=== PATIENT | male | born 1980 | race Caucasian/White ===

== ENCOUNTER 2019-03-20 18:58 | Emergency (ER) | payer SELFPAY ==
[~2019-03-20] VITALS: Ht 180.3 cm; Wt 97.3 kg
[2019-03-20] MEDS ORDERED: FLUORESCEIN (FLUOR-I-STRIPS) 1 MG STRP ONE (19:10)
[2019-03-20] MEDS ORDERED: TETRACAINE 0.5% OPHTH SOLN 4 ML BTL (SINGLE DOSE ONLY) ONE (19:10)
[2019-03-20] MEDS ORDERED: TETRACAINE 0.5% OPHTH SOLN 4 ML BTL (SINGLE DOSE ONLY) OP ONE (19:15)
--- NOTE | 2019-03-20 19:24 | ED EENT ---
History of Present Illness General Chief Complaint: Eye Problems Stated Complaint: EYE INFLAMMATION Nursing Triage Note: Patient states that 4-5 days ago he was working on a car and something fell into his left eye. He said he flushed his eye to remove the object. It is unknown if it came out and he never saw what it was. He said that his eye had been blood shot since it happened. Today, he is unable to open his eye and his eye is excessively tearing. She describes a sharp pain at the bottom of his eyeball. History of Present Illness Date Seen by Provider: Mar 20, 2019 Time Seen by Provider: 19:00 Initial Comments Over the last 3-4 days has had increasing redness in the left eye evidently was working under his 's car and something fell in the eye and since that time has had more redness associated with it some purulent drainage from the eye with as well but now more pain than anything Timing/Duration: gradual Location: eye (L) Prearrival Treatment: no prearrival treatment Allergies and Home Medications Allergies Coded Allergies: No Known Drug Allergies (Unverified , 03/20/19) Patient Home Medication List Home Medication List Reviewed: Yes Review of Systems Review of Systems Constitutional: No chills, No fever Eyes: Blurred Vision, Decreased Acuity, Foreign Body Sensation, Inflammation, Pain, Photophobia Skin: no symptoms reported Neurological: No Symptoms Reported Past Pamzced-Bltwyn-Jixvrd Hx Past Med/Social Hx: Reviewed Nursing Past Med/Soc Hx Patient Social History Recent Foreign Travel: No Contact w/Someone Who Travel: No Recent Infectious Disease Expo: No Physical Abuse: No Sexual Abuse: No Mistreated: No Fear: No Physical Exam Vital Signs Vital Signs - First Documented 03/20/19 19:00 Temp 36.6 Pulse 88 Resp 16 B/P (MAP) 132/76 (94) Pulse Ox 98 O2 Delivery Room Air Height, Weight, BMI Height: '" Weight: lbs. oz. kg; 29.00 BMI Method: General Appearance: WD/WN, mild distress Eyes: left eye conjunctival inflammation, left eye corneal abrasion, left eye lid inflammation, left eye foreign body; bilateral eye PERRL, bilateral eye EOMI Neurologic/Psychiatric: alert, oriented x 3 Skin: normal color, warm/dry Procedures/Interventions Eye : Location: left eye Anesthesia (gtts): Tetracaine Progress/Procedure Conclusion Under tetracaine anesthesia general initially showed 2 punctate areas 1 on the sclera one on the cornea both at the 9:00 position of the left eye proximal E millimeter to a millimeter and a half in diameter foggy consistent with corneal staining secondary to a metallic type foreign body most of his pain is left lateral along the palpebral conjunctiva with no evidence of injury there although there is quite a bit of fluorescence along the sclera at the lateral edge of the eye no evidence of foreign body could be noted at that edge examination with the fluorescein failed to show anything beyond what she described third irrigation and instillation of erythromycin ointment Progress/Results/Core Measures Results/Orders My Orders Orders - SUSANA HI JR, MD Tetracaine 0.5% Ophth Jeannie Sdv (Tetracai (03/20/19 19:15) Tetracaine 0.5% Ophth Jeannie Sdv (Tetracai (03/20/19 19:10) Fluorescein Strips ([id number]) (03/20/19 19:10) Erythromycin Ophth Oint (Erythromycin Op (03/20/19 22:00) Rx-Hydrocodone/Apap 5-325 Mg (Rx-Vicodin (03/20/19 19:30) Medications Given in ED Current Medications Medications Dose Ordered Sig/Joaquim Route Start Time Stop Time Status Last Admin Dose Admin Fluorescein Sodium 1 mg STK-MED ONCE .ROUTE 03/20/19 19:10 03/20/19 19:15 DC 03/20/19 19:23 1 MG Tetracaine HCl 1 OR 2 DROPS INTO AFFEC... ONCE ONCE OP 03/20/19 19:15 03/20/19 19:16 DC 03/20/19 19:22 4 ML Vital Signs/I&O 03/20/19 19:00 Temp 36.6 Pulse 88 Resp 16 B/P (MAP) 132/76 (94) Pulse Ox 98 O2 Delivery Room Air Blood Pressure Mean: 94 Progress Progress Note : Time: 19:27 Progress Note At this time given erythromycin ointment some Benkelman's and will follow with the hearing screener for further evaluation Departure Impression Primary Impression: Corneal foreign body Qualified Codes: T15.02XA - Foreign body in cornea, left eye, initial encounter Disposition: HOME, SELF-CARE Condition: Stable Departure-Patient Inst. Referrals: NO,LOCAL PHYSICIAN (PCP/Family) Primary Care Physician Patient Instructions: Corneal Abrasion (DC) SUSANA HI JR, MD Mar 20, 2019 19:24
[2019-03-20] MEDS ORDERED: CIPROFLOXACIN 0.3% (CILOXAN) 2.5 ML BTL OP SCH (19:30)
[2019-03-20] MEDS ORDERED: RX-HYDROCODONE/APAP 5/325 MG #4 TAB PK PO PRN (19:30)
[2019-03-20 19:36] VITALS: BP 132/76
[2019-03-20] MEDS ORDERED: ERYTHROMYCIN OPHTH OINT 1 GM (SINGLE USE) TUBE OP SCH (22:00)
== END 2019-03-20 19:36 | disposition home or self-care (01) ==
LOC: ER FS 19:02
DX: T15.02XA Foreign body in cornea, left eye, initial encounter (principal)
CPT/HCPCS: 99283

== ENCOUNTER 2019-03-21 18:53 | Emergency (ER) | payer OTHER ==
[~2019-03-21] VITALS: Ht 177.8 cm; Wt 90.7 kg
[2019-03-21] MEDS ORDERED: NS IV 500 ML 500 ML IV ONE (18:55)
[2019-03-21] MEDS ORDERED: FAMOTIDINE 20MG/2ML IV (PEPCID) IVP ONE (19:00)
[2019-03-21] MEDS ORDERED: LORATADINE (CLARITIN) 10 MG TAB PO ONE (19:00)
[2019-03-21] MEDS ORDERED: diphenhydrAMINE 50 MG/ML INJ (BENADRYL) IVP ONE (19:00)
--- NOTE | 2019-03-21 19:01 | ED General ---
General Stated Complaint: HIVES Source of Information: Patient, Family Exam Limitations: No Limitations History of Present Illness Date Seen by Provider: Mar 21, 2019 Time Seen by Provider: 18:48 Initial Comments Patient presents to ER by private conveyance with family from home with chief complaint of weakness, incontinence of stool and hives all over his body starting shortly after taking prednisone by mouth or ago. He is taking it as well as a topical ointment for his eye after he got a bit of debris in it while working on an automobile. He was seen here in the ER last night for this. He does not take any other medications routinely. He has not taken prednisone before that he can recall. He did take half a tablet of [place] that was prescribed to him last night and had no problems with that. He denies having another one today. He just took his first dose of prednisone about one hour ago. He denies shortness of breath, wheezing, difficulty swallowing fluids or swollen tongue. He started becoming weak when he was sitting on the toilet having some soft non-watery stools. He passed out struck the top of his head has some minor pain there is no cut. He is not on blood thinners. He denies any recent illnesses, sore throat, nasal congestion, cough, shortness of breath, constipation or diarrhea. His mother arrives shortly after him and says that he was over at her house sitting on the toilet and she was talking to him through the door to check on him because he was not feeling well and does not think he ever lost consciousness. She said he came back into her bedroom where she was at. He stated that he didn't feel well and was nauseated and stumbling around. He pitched forward and struck the top of his head against either the bed or some furniture. She does not think he lost consciousness at that point. Allergies and Home Medications Allergies Coded Allergies: No Known Drug Allergies (Unverified , 03/20/19) Patient Home Medication List Home Medication List Reviewed: Yes Review of Systems Review of Systems Constitutional: No chills, No diaphoresis, No fever, No malaise; weakness EENTM: No ear discharge, No ear pain Respiratory: No cough, No short of breath, No wheezing Cardiovascular: No chest pain, No edema Gastrointestinal: No abdominal pain, No constipation, No diarrhea Musculoskeletal: No back pain, No joint pain Skin: see HPI, pruritus, rash All Other Systems Reviewed Negative Unless Noted: Yes Past Bmkyunc-Okuxqw-Avllnv Hx Patient Social History Alcohol Use: Denies Use Recreational Drug Use: No Smoking Status: Current Everyday Smoker Type Used: Cigarettes Recent Foreign Travel: No Contact w/Someone Who Travel: No Recent Hopitalizations: No Seasonal Allergies Seasonal Allergies: No Past Medical History Surgeries: Yes (Right Eye Surgery) Appendectomy, Orthopedic Respiratory: No Cardiac: No Neurological: No Genitourinary: No Gastrointestinal: No Musculoskeletal: No Endocrine: No HEENT: No Cancer: No Psychosocial: No Integumentary: No Physical Exam Vital Signs Vital Signs - First Documented 03/21/19 19:01 Temp 36.4 Pulse 47 Resp 17 B/P (MAP) 117/103 (108) O2 Delivery Room Air Capillary Refill : Height, Weight, BMI Height: '" Weight: lbs. oz. kg; 29.00 BMI Method: General Appearance: Mild Distress, Other (disheveled, soiled) Eyes: Bilateral Eye Normal Inspection, Bilateral Eye PERRL, Bilateral Eye EOMI HEENT: PERRL/EOMI, TMs Normal, Normal ENT Inspection, Pharynx Normal, Moist Mucous Membranes Neck: Full Range of Motion, Normal Inspection, Non Tender, Supple Respiratory: Lungs Clear, Normal Breath Sounds, No Accessory Muscle Use, No Respiratory Distress Cardiovascular: Regular Rate, Rhythm, No Edema, Normal Peripheral Pulses Gastrointestinal: Normal Bowel Sounds, Non Tender, Soft Extremity: Normal Capillary Refill, Normal Inspection, Normal Range of Motion, No Pedal Edema Neurologic/Psychiatric: Alert, Oriented x3, Other (GCS 14) Skin: Rash (patchy confluences and wheals consistent with hives.) Progress/Results/Core Measures Suspected Sepsis SIRS Temperature: Pulse: Respiratory Rate: Laboratory Tests 03/21/19 19:00: White Blood Count 12.8H Blood Pressure / Mean: Laboratory Tests 03/21/19 19:00: Creatinine 1.53H, Platelet Count 347, Total Bilirubin 0.3 Results/Orders Lab Results Laboratory Tests Test 03/21/19 19:00 03/21/19 21:50 Range/Units White Blood Count 12.8 H 4.3-11.0 10^3/uL Red Blood Count 5.57 4.35-5.85 10^6/uL Hemoglobin 17.3 13.3-17.7 G/DL Hematocrit 52 40-54 % Mean Corpuscular Volume 93 80-99 FL Mean Corpuscular Hemoglobin 31 25-34 PG Mean Corpuscular Hemoglobin Concent 33 32-36 G/DL Red Cell Distribution Width 12.8 10.0-14.5 % Platelet Count 347 130-400 10^3/uL Mean Platelet Volume 10.1 7.4-10.4 FL Neutrophils (%) (Auto) 57 42-75 % Lymphocytes (%) (Auto) 34 12-44 % Monocytes (%) (Auto) 6 0-12 % Eosinophils (%) (Auto) 2 0-10 % Basophils (%) (Auto) 0 0-10 % Neutrophils # (Auto) 7.3 1.8-7.8 X 10^3 Lymphocytes # (Auto) 4.4 H 1.0-4.0 X 10^3 Monocytes # (Auto) 0.8 0.0-1.0 X 10^3 Eosinophils # (Auto) 0.2 0.0-0.3 10^3/uL Basophils # (Auto) 0.0 0.0-0.1 10^3/uL Sodium Level 142 135-145 MMOL/L Potassium Level 3.8 3.6-5.0 MMOL/L Chloride Level 102 98-107 MMOL/L Carbon Dioxide Level 24 21-32 MMOL/L Anion Gap 16 H 5-14 MMOL/L Blood Urea Nitrogen 18 7-18 MG/DL Creatinine 1.53 H 0.60-1.30 MG/DL Estimat Glomerular Filtration Rate 51 BUN/Creatinine Ratio 12 Glucose Level 180 H 70-105 MG/DL Calcium Level 9.1 8.5-10.1 MG/DL Corrected Calcium 9.0 8.5-10.1 MG/DL Total Bilirubin 0.3 0.1-1.0 MG/DL Aspartate Amino Transf (AST/SGOT) 24 5-34 U/L Alanine Aminotransferase (ALT/SGPT) 15 0-55 U/L Alkaline Phosphatase 53 40-136 U/L Troponin I < 0.30 <0.30 NG/ML Pro-B-Type Natriuretic Peptide 11.6 <75.0 PG/ML Total Protein 7.3 6.4-8.2 GM/DL Albumin 4.1 3.2-4.5 GM/DL Serum Alcohol < 10 <10 MG/DL Urine Color YELLOW Urine Clarity CLEAR Urine pH 6.5 5-9 Urine Specific Bude 1.025 H 1.016-1.022 Urine Protein TRACE H NEGATIVE Urine Glucose (UA) NEGATIVE NEGATIVE Urine Ketones NEGATIVE NEGATIVE Urine Nitrite NEGATIVE NEGATIVE Urine Bilirubin NEGATIVE NEGATIVE Urine Urobilinogen 0.2 < = 1.0 MG/DL Urine Leukocyte Esterase NEGATIVE NEGATIVE Urine RBC (Auto) NEGATIVE NEGATIVE Urine RBC NONE /HPF Urine WBC 0-2 /HPF Urine Squamous Epithelial Cells NONE /HPF Urine Crystals NONE /LPF Urine Bacteria NEGATIVE /HPF Urine Casts PRESENT /LPF Urine Hyaline Casts 2-5 H /LPF Urine Mucus SMALL H /LPF Urine Culture Indicated NO Urine Opiates Screen POSITIVE H NEGATIVE Urine Oxycodone Screen NEGATIVE NEGATIVE Urine Methadone Screen NEGATIVE NEGATIVE Urine Propoxyphene Screen NEGATIVE NEGATIVE Urine Barbiturates Screen NEGATIVE NEGATIVE Ur Tricyclic Antidepressants Screen NEGATIVE NEGATIVE Urine Phencyclidine Screen NEGATIVE NEGATIVE Urine Amphetamines Screen POSITIVE H NEGATIVE Urine Methamphetamines Screen POSITIVE H NEGATIVE Urine Benzodiazepines Screen NEGATIVE NEGATIVE Urine Cocaine Screen NEGATIVE NEGATIVE Urine Cannabinoids Screen NEGATIVE NEGATIVE My Orders Orders - ILEANA UMAÑA Diphenhydramine Injection (Benadryl Inje (03/21/19 19:00) Famotidine Injection (Pepcid Injection) (03/21/19 19:00) Ed Iv/Invasive Line Start (03/21/19 18:55) Ns Iv 500 Ml (Sodium Chloride 0.9%) (03/21/19 18:55) Cbc With Automated Diff (03/21/19 18:55) Comprehensive Metabolic Panel (03/21/19 18:55) Ua Culture If Indicated (03/21/19 18:55) Ct Head/Cervical Spine Wo (03/21/19 19:10) Ed Iv/Invasive Line Start (03/21/19 19:10) Ns Iv 1000 Ml (Sodium Chloride 0.9%) (03/21/19 19:10) Ondansetron Injection (Zofran Injectio (03/21/19 19:15) Ekg Tracing (03/21/19 19:13) Continuous Ekg Monitoring (03/21/19 19:13) Troponin I Fs (03/21/19 19:13) Probnp Fs (03/21/19 19:13) Accucheck Stat ONCE (03/21/19 19:13) Alcohol (03/21/19 19:44) Drug Screen Stat (Urine) (03/21/19 19:44) Medications Given in ED Current Medications Medications Dose Ordered Sig/Joaquim Route Start Time Stop Time Status Last Admin Dose Admin Diphenhydramine HCl 25 mg ONCE ONCE IVP 03/21/19 19:00 03/21/19 19:01 DC 03/21/19 19:08 25 MG Famotidine 20 mg ONCE ONCE IVP 03/21/19 19:00 03/21/19 19:01 DC 03/21/19 19:07 20 MG Ondansetron HCl 4 mg ONCE ONCE IVP 03/21/19 19:15 03/21/19 19:16 DC 03/21/19 19:26 4 MG Sodium Chloride 500 ml @ 0 mls/hr Q0M ONCE IV 03/21/19 18:55 03/21/19 18:59 DC 03/21/19 19:07 999 MLS/HR Vital Signs/I&O 03/21/19 19:01 Temp 36.4 Pulse 47 Resp 17 B/P (MAP) 117/103 (108) O2 Delivery Room Air Capillary Refill : Progress Note #1: Time: 19:06 Progress Note Patient states he was weak on the toilet and passed out. He did Strike his head. Vasovagal? Definite seems to be having hives. We'll get an antihistamine blockade will hold off on any steroids. He is not having any airway compromise. We'll give him a 1500 cc fluid bolus challenge. He has a good blood pressure was systolic of 130. Non-tachycardic. EKG. Plan to get an imaging of his head and neck since he is somnolent. Progress Note #2: Time: 20:28 Progress Note Person syncope risk score -2 points. Very low risk; 0.7% risk of 30-day serious adverse event. Suspected some part of the prednisone, binder, filler etc. cause allergic reaction given the timing. We've instructed him not to use prednisone in the future but he can still use steroids. ECG Initial ECG Impression Date: Mar 21, 2019 Initial ECG Impression Time: 19:29 Initial ECG Rate: 80 Initial ECG Intervals: QT (446) Initial ECG Impression: Normal, Nonspecific Changes Initial ECG Comparisson: No Previous ECG Available Comment Normal sinus rhythm without ST elevation or depression. Diagnostic Imaging Diagonstic Imaging: CT Plain Films/CT/US/NM/MRI: c-spine, head Comments No intracranial hemorrhage, mass effect, midline shift, tumor or calvarial fracture. No C-spine malalignment or fracture. Reviewed: Reviewed by Me, Discussed w/Radiologist (Dr. Crisostomo) Departure Impression Primary Impression: Fall Qualified Codes: W19.XXXA - Unspecified fall, initial encounter Additional Impression: Urticaria due to drug allergy Disposition: HOME, SELF-CARE Condition: Improved Departure-Patient Inst. Decision time for Depature: 22:13 Referrals: NO,LOCAL PHYSICIAN (PCP/Family) Primary Care Physician Patient Instructions: Hives (DC), Adverse Drug Reactions, Adult (DC) Add. Discharge Instructions: Avoid prednisone in the future. It's probably reasonable to try a different steroid however. For the next week take Claritin, loratadine or Zyrtec, cetirizine one 10 mg ta blet every day to prevent recurrence of the rash. You should also take Pepcid 20 mg twice a day for the next week to prevent rec urrence of the rash. If you do get a recurrence of the rash then you should take 1-2 tablets of Benadryl every 6 hours as needed to control itching. If you have difficulty breathing or swallowing your secretions then you need to immediately return to the ER. Follow-up with a primary care provider in the next 1-2 weeks for reexamination. ILEANA UMAÑA Mar 21, 2019 19:01
[2019-03-21] MEDS ORDERED: NS IV 1000 ML 1,000 ML IV SCH (19:10)
[2019-03-21] MEDS ORDERED: ONDANSETRON 4 MG/2 ML (SDV) Z0FRAN IVP ONE (19:15)
[2019-03-21 19:31] LABS: POTASSIUM 3.8 MMOL/L (3.6-5.0)
[2019-03-21 19:32] LABS: BILIRUBIN,TOTAL 0.3 MG/DL (0.1-1.0); CALCIUM 9.1 MG/DL (8.5-10.1); CREATININE SERUM 1.53 MG/DL (0.60-1.30); TOTAL PROTEIN 7.3 GM/DL (6.4-8.2)
[2019-03-21 19:33] LABS: ALBUMIN 4.1 GM/DL (3.2-4.5)
[2019-03-21 20:15] LABS: HEMATOCRIT 52 % (40-54); HEMOGLOBIN 17.3 G/DL (13.3-17.7); MEAN CORPUSCULAR HEMOGLOBIN 31 PG (25-34); MEAN CORPUSCULAR HGB CONC 33 G/DL (32-36); MEAN CORPUSCULAR VOLUME 93 FL (80-99); MEAN PLATELET VOLUME 10.1 FL (7.4-10.4); PLATELET COUNT 347 10^3/uL (130-400); RED CELL DISTRIBUTION WIDTH 12.8 % (10.0-14.5); WHITE BLOOD COUNT 12.8 10^3/uL (4.3-11.0)
[2019-03-21 20:16] LABS: BASOPHILS % (AUTO) 0 % (0-10); EOSINOPHILS # (AUTO) 0.2 10^3/uL (0.0-0.3); EOSINOPHILS % (AUTO) 2 % (0-10); LYMPHOCYTES # (AUTO) 4.4 X 10^3 (1.0-4.0); LYMPHOCYTES % (AUTO) 34 % (12-44); MONOCYTES # (AUTO) 0.8 X 10^3 (0.0-1.0); MONOCYTES % (AUTO) 6 % (0-12); NEUTROPHILS # (AUTO) 7.3 X 10^3 (1.8-7.8); NEUTROPHILS % (AUTO) 57 % (42-75)
--- NOTE | 2019-03-21 21:45 | Diagnostic Imaging Report ---
PROCEDURE: CT head and CT cervical spine without contrast. TECHNIQUE: Multiple contiguous axial images were obtained through the brain and cervical spine without the use of intravenous contrast. Sagittal and coronal reformations through the cervical spine were then performed. Auto Exposure Controls were utilized during the CT exam to meet ALARA standards for radiation dose reduction. INDICATION: Head and neck injury. There are no prior studies available for comparison. CT Head: FINDINGS: There is no mass, shift of the midline, or hemorrhage to suggest an acute intracranial abnormality. The normal tentorial blush is evident. The ventricles are not abnormally dilated. The calvarium is somewhat difficult to evaluate due to streak artifact. There is no evidence for a skull fracture. The orbits and sinuses are not visualized in their entirety; where visualized, there is no acute abnormality. On the inferior most section through the skull base, there is a linear 10 mm radiopaque density along the posterior aspect of the right orbit. This is of uncertain etiology. If further evaluation is desired, then CT of the facial bones will be recommended. IMPRESSION: 1. There is no evidence for an acute intracranial abnormality. 2. The small linear radiopaque density along the posterior aspect of the right orbit is of uncertain etiology. Additional considerations as above. CT Cervical Spine: FINDINGS: The reconstructed parasagittal images show mild reversal of the normal lordosis of the cervical spine. This may be secondary to muscle spasm and/or positioning. The vertebral body heights are within normal limits and the intervertebral disc spaces are fairly well maintained. There is no evidence for a high-grade central stenosis; however, there is a suggestion of a disc bulge to the right at the C5-C6 level. This may produce mild central stenosis. If further evaluation is desired, then MRI will be recommended. There is no fracture or acute bony abnormality evident. There is no sign of retropharyngeal edema. The thyroid gland is unremarkable. The lung apices are clear. IMPRESSION: 1. There is no evidence for an acute bony abnormality. 2. There is a disc bulge to the right at C5-C6. This may produce mild central stenosis. Recommendations as above. Dictated by: Dictated on workstation # [id number]
[2019-03-21 22:04] LABS: BILIRUBIN,URINE NEGATIVE (NEGATIVE); CLARITY,URINE CLEAR; COLOR,URINE YELLOW; GLUCOSE, URINE (UA) NEGATIVE (NEGATIVE); KETONES,URINE NEGATIVE (NEGATIVE); LEUKOCYTE ESTERASE ,URINE NEGATIVE (NEGATIVE); NITRITE,URINE NEGATIVE (NEGATIVE); PH,URINE 6.5 (5-9); PROTEIN,URINE TRACE (NEGATIVE)
[2019-03-21 22:05] LABS: BACTERIA,URINE NEGATIVE /HPF; WBC,URINE 0-2 /HPF
[2019-03-21 22:08] LABS: AMPHETAMINE SCREEN, URINE POSITIVE (NEGATIVE); BENZODIAZEPINES SCREEN URINE NEGATIVE (NEGATIVE); CANNABINOID SCREEN, URINE NEGATIVE (NEGATIVE); COCAINE SCREEN URINE NEGATIVE (NEGATIVE); METHAMPHETAMINE SCREEN URINE S POSITIVE (NEGATIVE); OPIATE SCREEN URINE POSITIVE (NEGATIVE)
[2019-03-21 22:09] LABS: BARBITURATE SCREEN URINE NEGATIVE (NEGATIVE); METHADONE STAT NEGATIVE (NEGATIVE); OXYCODONE STAT NEGATIVE (NEGATIVE); PROPOXYPHENE STAT NEGATIVE (NEGATIVE); TRICYCLIC ANTIDEPRESSANTS SCRE NEGATIVE (NEGATIVE)
[2019-03-21 22:35] VITALS: BP 139/78
== END 2019-03-21 22:35 | disposition home or self-care (01) ==
LOC: EDUNIT# 18:53 → ER FS 18:55
DX: L50.9 Urticaria, unspecified (principal); T38.0X5A Adverse effect of glucocorticoids and synthetic analogues, initial encounter; F17.210 Nicotine dependence, cigarettes, uncomplicated; Z90.49 Acquired absence of other specified parts of digestive tract; W01.198A Fall on same level from slipping, tripping and stumbling with subsequent striking against other object, initial encounter
CPT/HCPCS: 36415; 70450; 72125; 80053; 80306; 80320; 81000; 83880; 84484; 85025; 93005; 96361; 96374; 96375

== ENCOUNTER 2019-09-20 18:19 | Emergency (ER) | payer OTHER ==
[~2019-09-20] VITALS: Ht 180 cm; Wt 95.0 kg
[2019-09-20] MEDS ORDERED: LACTATED RINGERS 1,000 ML IV ONE ×2 (18:35→18:38)
[2019-09-20 18:43] LABS: CLARITY,URINE CLEAR; COLOR,URINE YELLOW; GLUCOSE, URINE (UA) NEGATIVE (NEGATIVE); PH,URINE 6.5 (5-9); PROTEIN,URINE NEGATIVE (NEGATIVE)
[2019-09-20 18:44] LABS: AMORPHOUS SEDIMENT,UR FEW AMOR URATES /LPF; BACTERIA,URINE TRACE /HPF; BILIRUBIN,URINE NEGATIVE (NEGATIVE); HYALINE CASTS, URINE 0-2 /LPF; KETONES,URINE NEGATIVE (NEGATIVE); LEUKOCYTE ESTERASE ,URINE NEGATIVE (NEGATIVE); NITRITE,URINE NEGATIVE (NEGATIVE)
--- NOTE | 2019-09-20 18:44 | ED Abdominal Pain ---
General Chief Complaint: Abdominal/GI Problems Stated Complaint: ABD PAIN Source of Information: Patient, Police Exam Limitations: No Limitations History of Present Illness Date Seen by Provider: Sep 20, 2019 Time Seen by Provider: 18:24 Initial Comments Patient presents ER by private conveyance with a couple days of prominence of his umbilicus, pain when he pushes on it and has not had a bowel movement 2 days. No history of umbilical surgical repair. He did have a laparoscopic appendectomy years ago. No other trauma. No fevers chills nausea vomiting or diarrhea. He says as long she lay still pain doesn't bother him. No dysuria or hematuria. Allergies and Home Medications Allergies Coded Allergies: No Known Drug Allergies (Unverified , 03/20/19) Home Medications Polyethylene Glycol 3350 119 Gm Powder, 17 GM PO BID PRN PRN for CONSTIPATION- 1ST LINE Prescribed by: ILEANA UMAÑA on 09/20/192040 Patient Home Medication List Home Medication List Reviewed: Yes Review of Systems Review of Systems Constitutional: No chills, No diaphoresis EENTM: No Blurred Vision, No Double Vision Respiratory: Denies Cough, Denies Orthopnea Cardiovascular: Denies Chest Pain, Denies Lightheadedness Gastrointestinal: See HPI, Abdominal Pain, Constipated; Denies Diarrhea, Denies Nausea Genitourinary: Denies Burning, Denies Discharge Musculoskeletal: No back pain, No joint pain Skin: No pruritus, No rash Psychiatric/Neurological: Denies Anxiety, Denies Depressed All Other Systems Reviewed Negative Unless Noted: Yes Past Xmmpako-Sxvkyx-Crrzbn Hx Patient Social History Alcohol Use: Occasionally Uses Recreational Drug Use: No Smoking Status: Current Everyday Smoker Type Used: Cigarettes Recent Foreign Travel: No Contact w/Someone Who Travel: No Recent Hopitalizations: No Seasonal Allergies Seasonal Allergies: No Past Medical History Surgeries: Yes (Right Eye Surgery) Appendectomy, Orthopedic Respiratory: No Cardiac: No Neurological: No Genitourinary: No Gastrointestinal: No Musculoskeletal: No Endocrine: No HEENT: No Cancer: No Psychosocial: No Integumentary: No Physical Exam Vital Signs Vital Signs - First Documented 09/20/19 18:47 Temp 36.8 Pulse 62 Resp 16 B/P (MAP) 104/88 (93) O2 Delivery Room Air Capillary Refill : Height/Weight/BMI Height: '" Weight: lbs. oz. kg; 28.00 BMI Method: General Appearance: WD/WN, no apparent distress HEENT: PERRL/EOMI, pharynx normal Neck: full range of motion Respiratory: no respiratory distress, no accessory muscle use Cardiovascular: normal peripheral pulses, regular rate, rhythm (56), no edema Peripheral Pulses: 2+ Radial Pulses (R), 2+ Radial Pulses (L) Gastrointestinal: normal bowel sounds, soft, tenderness (over the umbilicus which is mildly herniated about 1 cm), other (able to partially reduce the umbilicus which cause some pain over his left upper quadrant abdomen.) Extremities: normal range of motion, non-tender, normal capillary refill Neurologic/Psychiatric: alert, normal mood/affect, oriented x 3 Skin: normal color, warm/dry Progress/Results/Core Measures Results/Orders Lab Results Laboratory Tests Test 09/20/19 18:36 09/20/19 18:44 Range/Units Urine Color YELLOW Urine Clarity CLEAR Urine pH 6.5 5-9 Urine Specific [place] 1.025 H 1.016-1.022 Urine Protein NEGATIVE NEGATIVE Urine Glucose (UA) NEGATIVE NEGATIVE Urine Ketones NEGATIVE NEGATIVE Urine Nitrite NEGATIVE NEGATIVE Urine Bilirubin NEGATIVE NEGATIVE Urine Urobilinogen 0.2 < = 1.0 MG/DL Urine Leukocyte Esterase NEGATIVE NEGATIVE Urine RBC (Auto) NEGATIVE NEGATIVE Urine RBC NONE /HPF Urine WBC NONE /HPF Urine Squamous Epithelial Cells 2-5 /HPF Urine Crystals PRESENT H /LPF Urine Amorphous Sediment FEW WAYLON URATES H /LPF Urine Bacteria TRACE /HPF Urine Casts PRESENT /LPF Urine Hyaline Casts 0-2 H /LPF Urine Mucus LARGE H /LPF Urine Other SODIUM URATE CRYSTAL /HPF Urine Culture Indicated NO White Blood Count 7.1 4.3-11.0 10^3/uL Red Blood Count 4.82 4.35-5.85 10^6/uL Hemoglobin 14.9 13.3-17.7 G/DL Hematocrit 44 40-54 % Mean Corpuscular Volume 91 80-99 FL Mean Corpuscular Hemoglobin 31 25-34 PG Mean Corpuscular Hemoglobin Concent 34 32-36 G/DL Red Cell Distribution Width 12.8 10.0-14.5 % Platelet Count 235 130-400 10^3/uL Mean Platelet Volume 10.5 H 7.4-10.4 FL Neutrophils (%) (Auto) 57 42-75 % Lymphocytes (%) (Auto) 31 12-44 % Monocytes (%) (Auto) 8 0-12 % Eosinophils (%) (Auto) 3 0-10 % Basophils (%) (Auto) 0 0-10 % Neutrophils # (Auto) 4.1 1.8-7.8 X 10^3 Lymphocytes # (Auto) 2.2 1.0-4.0 X 10^3 Monocytes # (Auto) 0.5 0.0-1.0 X 10^3 Eosinophils # (Auto) 0.2 0.0-0.3 10^3/uL Basophils # (Auto) 0.0 0.0-0.1 10^3/uL Sodium Level 138 135-145 MMOL/L Potassium Level 3.8 3.6-5.0 MMOL/L Chloride Level 102 98-107 MMOL/L Carbon Dioxide Level 26 21-32 MMOL/L Anion Gap 10 5-14 MMOL/L Blood Urea Nitrogen 12 7-18 MG/DL Creatinine 0.99 0.60-1.30 MG/DL Estimat Glomerular Filtration Rate > 60 BUN/Creatinine Ratio 12 Glucose Level 96 70-105 MG/DL Calcium Level 9.0 8.5-10.1 MG/DL Corrected Calcium 8.9 8.5-10.1 MG/DL Total Bilirubin 0.4 0.1-1.0 MG/DL Aspartate Amino Transf (AST/SGOT) 17 5-34 U/L Alanine Aminotransferase (ALT/SGPT) 18 0-55 U/L Alkaline Phosphatase 45 40-136 U/L C-Reactive Protein 0.04 <0.50 MG/DL Total Protein 6.9 6.4-8.2 GM/DL Albumin 4.1 3.2-4.5 GM/DL Lipase 42 8-78 U/L My Orders Orders - ILEANA UMAÑA Ua Culture If Indicated (09/20/19 18:23) Lactated Ringers (Lr 1000 Ml Iv Solution (09/20/19 18:35) Cbc With Automated Diff (09/20/19 18:38) Comprehensive Metabolic Panel (09/20/19 18:38) Crp Fs (09/20/19 18:38) Lipase (09/20/19 18:38) Ct Abdomen/Pelvis W (09/20/19 18:38) Ed Iv/Invasive Line Start (09/20/19 18:38) Lactated Ringers (Lr 1000 Ml Iv Solution (09/20/19 18:38) Iohexol Injection (Omnipaque 350 Mg/Ml 1 (09/20/19 19:00) Received Contrast (Hold Metformin- Contr (09/20/19 19:00) Sodium Chloride Flush (Catheter Flush Sy (09/20/19 19:00) Ns (Ivpb) (Sodium Chloride 0.9% Ivpb Bag (09/20/19 19:00) Medications Given in ED Current Medications Medications Dose Ordered Sig/Joaquim Route Start Time Stop Time Status Last Admin Dose Admin Iohexol 100 ml ONCE ONCE IV 09/20/19 19:00 09/20/19 19:01 DC 09/20/19 19:22 100 ML Lactated Ringer's 1,000 ml @ 0 mls/hr Q0M ONCE IV 09/20/19 18:38 09/20/19 18:40 DC 09/20/19 18:50 1,000 MLS/HR Sodium Chloride 100 ml ONCE ONCE IV 09/20/19 19:00 09/20/19 19:01 DC 09/20/19 19:22 100 ML Vital Signs/I&O 09/20/19 18:47 Temp 36.8 Pulse 62 Resp 16 B/P (MAP) 104/88 (93) O2 Delivery Room Air Progress Progress Note : Time: 18:42 Progress Note He doesn't require anything for pain as long as I am not pushing on him. I suspect he has a little umbilical hernia. We'll get a CT of the abdomen pelvis with IV contrast to help rule out incarcerated/strangulated hernia. We'll get some basic labs give him a liter of fluids and check a urinalysis. Diagnostic Imaging Diagonstic Imaging: CT (with IV contrast) Plain Films/CT/US/NM/MRI: abdomen, pelvis Comments NAME: TIMOTHY HERNÁNDEZ [facility] REC#: [id number] PT STATUS: REG ER : 1980 PHYSICIAN: ILEANA UMAÑA MD ADMIT DATE: 09/20/19/ER FS Signed Date of Exam:09/20/19 CT ABDOMEN/PELVIS W PROCEDURE: CT abdomen and pelvis with contrast. TECHNIQUE: Multiple contiguous axial images were obtained through the abdomen and pelvis after administration of intravenous contrast. Auto Exposure Controls were utilized during the CT exam to meet ALARA standards for radiation dose reduction. INDICATION: Right-sided abdominal pain, history of appendectomy. COMPARISON: None. FINDINGS: Lung bases are clear. The gallbladder, liver, spleen, pancreas, adrenal glands, kidneys, vascular structures and small bowel are normal. There is some slight constipation without obstruction or ileus. The appendix is surgically absent. There is no lymphadenopathy or inflammatory change. Distal ureters and urinary bladder are normal. The prostate is nonenlarged. There is no hernia. Osseous structures are age-appropriate. IMPRESSION: Slight constipation otherwise negative CT abdomen pelvis. Dictated by: Dictated on workstation # [id number] Dict: 09/20/191957 Trans: 09/20/192021 [facility] [id number] Interpreted by: INDERJIT CABRERA Electronically signed by: INDERJIT CABRERA 09/20/192021 Reviewed: Reviewed by Me Departure Impression Primary Impression: Umbilical hernia without obstruction or gangrene Additional Impression: Constipation Qualified Codes: K59.00 - Constipation, unspecified Disposition: HOME, SELF-CARE Condition: Stable Departure-Patient Inst. Decision time for Depature: 20:39 Referrals: JC SHEFFIELD MD NO,LOCAL PHYSICIAN (PCP) Primary Care Physician Patient Instructions: Constipation, Adult (DC), Umbilical Hernia, Adult Add. Discharge Instructions: You have a hernia or weak spot in the abdominal wall at the level of your bellybutton which is not an unusual place for this to occur. Presently it is not causing any trouble. If you would like to follow up with a surgeon you can give Dr. Sheffield a phone call and he would be happy to schedule your appointment to talk about repairing it. Your constipation is best treated by drinking more fluids and once or twice a d ay for cap full of MiraLAX powder mixed in 6-8 ounces of fluid of your choice until you feel cleaned out. Cleared to return to custody. Tylenol 1000 mg every 8 hours as necessary for pain. Ibuprofen 800 mg every 8 hours as necessary for pain. Return to the ER if you go a week without being able to have a bowel movement or develop fever, intractable pain, vomiting or other worrisome symptoms. All discharge instructions reviewed with patient and/or family. Voiced understanding. Scripts Ibuprofen (Ibuprofen) 800 Mg Tablet 800 MG PO Q8H PRN for PAIN-MILD for 7 Days, #30 TAB 0 Refills Prov: ILEANA UMAÑA 09/20/19 Polyethylene Glycol 3350 (Miralax) 119 Gm Powder 17 GM PO BID PRN PRN for CONSTIPATION-1ST LINE for 7 Days, #1 EA 0 Refills Prov: ILEANA UMAÑA 09/20/19 Copy Copies To 1: JC SHEFFIELD MD, TITUS J Sep 20, 2019 18:44
[2019-09-20 18:45] LABS: URINE OTHER SODIUM URATE CRYSTAL /HPF
[2019-09-20 18:50] LABS: BASOPHILS % (AUTO) 0 % (0-10); EOSINOPHILS # (AUTO) 0.2 10^3/uL (0.0-0.3); EOSINOPHILS % (AUTO) 3 % (0-10); HEMATOCRIT 44 % (40-54); HEMOGLOBIN 14.9 G/DL (13.3-17.7); LYMPHOCYTES # (AUTO) 2.2 X 10^3 (1.0-4.0); LYMPHOCYTES % (AUTO) 31 % (12-44); MEAN CORPUSCULAR HEMOGLOBIN 31 PG (25-34); MEAN CORPUSCULAR HGB CONC 34 G/DL (32-36); MEAN CORPUSCULAR VOLUME 91 FL (80-99); MEAN PLATELET VOLUME 10.5 FL (7.4-10.4); MONOCYTES # (AUTO) 0.5 X 10^3 (0.0-1.0); MONOCYTES % (AUTO) 8 % (0-12); NEUTROPHILS # (AUTO) 4.1 X 10^3 (1.8-7.8); NEUTROPHILS % (AUTO) 57 % (42-75); PLATELET COUNT 235 10^3/uL (130-400); RED CELL DISTRIBUTION WIDTH 12.8 % (10.0-14.5); WHITE BLOOD COUNT 7.1 10^3/uL (4.3-11.0)
[2019-09-20] MEDS ORDERED: NS 100 ML (IVPB) BAG IV ONE (19:00)
[2019-09-20] MEDS ORDERED: IOHEXOL 350 MG/ML 100 ML (OMNIPAQUE 350) VIAL IV ONE (19:00)
[2019-09-20] MEDS ORDERED: HOLD METFORMIN - RECEIVED CONTRAST 20 ML VIAL IV SCH (19:00)
[2019-09-20] MEDS ORDERED: CATHETER FLUSH 10 ML SYR IV PRN (19:00)
[2019-09-20 19:10] LABS: ALANINE AMINOTRANSFERASE 18 U/L (0-55); ALBUMIN 4.1 GM/DL (3.2-4.5); ALKALINE PHOSPHATASE 45 U/L (40-136); BILIRUBIN,TOTAL 0.4 MG/DL (0.1-1.0); CARBON DIOXIDE 26 MMOL/L (21-32); CHLORIDE 102 MMOL/L (98-107); GLUCOSE 96 MG/DL (70-105); LIPASE 42 U/L (8-78); POTASSIUM 3.8 MMOL/L (3.6-5.0); SODIUM 138 MMOL/L (135-145); TOTAL PROTEIN 6.9 GM/DL (6.4-8.2)
[2019-09-20 19:12] LABS: BUN/CREATININE RATIO 12; CREATININE SERUM 0.99 MG/DL (0.60-1.30); GFR ESTIMATED > 60
--- NOTE | 2019-09-20 20:09 | Diagnostic Imaging Report ---
PROCEDURE: CT abdomen and pelvis with contrast. TECHNIQUE: Multiple contiguous axial images were obtained through the abdomen and pelvis after administration of intravenous contrast. Auto Exposure Controls were utilized during the CT exam to meet ALARA standards for radiation dose reduction. INDICATION: Right-sided abdominal pain, history of appendectomy. COMPARISON: None. FINDINGS: Lung bases are clear. The gallbladder, liver, spleen, pancreas, adrenal glands, kidneys, vascular structures and small bowel are normal. There is some slight constipation without obstruction or ileus. The appendix is surgically absent. There is no lymphadenopathy or inflammatory change. Distal ureters and urinary bladder are normal. The prostate is nonenlarged. There is no hernia. Osseous structures are age-appropriate. IMPRESSION: Slight constipation otherwise negative CT abdomen pelvis. Dictated by: Dictated on workstation # [id number]
[2019-09-20] MEDS ORDERED: POLY119P5 PO (20:41)
[2019-09-20] MEDS ORDERED: IBUP-1780 PO (20:49)
[2019-09-20 20:56] VITALS: BP 141/76
--- OUTSIDE RECORDS SUMMARY | 2019-09-20 21:21 | XMS REPORT | Continuity of Care Document ---
Author Organization Unknown Address Unknown Phone Unavailable Allergies Active Description Code Type Severity Reaction Onset Reported/Identified Relationship to Patient Clinical Status Yes No Known Drug Allergies [id number] Drug Allergy Unknown N/A 03/20/2019 Medications There is no data. Problems Date Dx Coded Attending Type Code Diagnosis Diagnosed By 03/20/2019 SUSANA HI MD, Ot H57.89 OTHER SPECIFIED DISORDERS OF EYE AND ADN 03/20/2019 SUSANA HI MD, Ot T15.02XA FOREIGN BODY IN [place], LEFT EYE, INITIA 03/21/2019 ILEANA UMAÑA MD Ot F17.210 NICOTINE DEPENDENCE, CIGARETTES, UNCOMPL 03/21/2019 ILEANA UMAÑA MD Ot L50. 9 URTICARIA, UNSPECIFIED 03/21/2019 ILEANA UMAÑA MD Ot T38.0X5A ADVERSE EFFECT OF GLUCOCORT/SYNTH ANALOG 03/21/2019 ILEANA UMAÑA MD Ot W01.198A FALL SAME LEV FROM SLIP/TRIP W STRIKE AG 03/21/2019 ILEANA UMAÑA MD Ot Z90. 49 ACQUIRED ABSENCE OF OTHER SPECIFIED PART 03/26/2019 SUSANA HI MD Ot H57.89 OTHER SPECIFIED DISORDERS OF EYE AND ADN 03/26/2019 SUSANA HI MD Ot T15.02XA FOREIGN BODY IN [place], LEFT EYE, INITIA 03/27/2019 ILEANA UMAÑA MD Ot F17.210 NICOTINE DEPENDENCE, CIGARETTES, UNCOMPL 03/27/2019 ILEANA UMAÑA MD Ot L50. 9 URTICARIA, UNSPECIFIED 03/27/2019 ILEANA UMAÑA MD Ot T38.0X5A ADVERSE EFFECT OF GLUCOCORT/SYNTH ANALOG 03/27/2019 ILEANA UMAÑA MD J Ot W01.198A FALL SAME LEV FROM SLIP/TRIP W STRIKE AG 03/27/2019 ILEANA UMAÑA MD Ot Z90. 49 ACQUIRED ABSENCE OF OTHER SPECIFIED PART 04/05/2019 ILEANA UMAÑA MD Ot F17.210 NICOTINE DEPENDENCE, CIGARETTES, UNCOMPL 04/05/2019 ILEANA UMAÑA MD Ot L50. 9 URTICARIA, UNSPECIFIED 04/05/2019 ILEANA UMAÑA MD, Ot T38.0X5A ADVERSE EFFECT OF GLUCOCORT/SYNTH ANALOG 04/05/2019 ILEANA UMAÑA MD, Ot W01.198A FALL SAME LEV FROM SLIP/TRIP W STRIKE AG 04/05/2019 ILEANA UMAÑA MD, Ot Z90. 49 ACQUIRED ABSENCE OF OTHER SPECIFIED PART Procedures There is no data. Results Test Result Range Comprehensive metabolic panel - 03/21/19 19:00 Serum or plasma sodium measurement (moles/volume) 142 mmol/L 135-145 Serum or plasma potassium measurement (moles/volume) 3.8 mmol/L 3.6-5.0 Serum or plasma chloride measurement (moles/volume) 102 mmol/L 98-107 Carbon dioxide 24 mmol/L 21-32 Serum or plasma anion gap determination (moles/volume) 16 mmol/L 5-14 Serum or plasma urea nitrogen measurement (mass/volume ) 18 mg/dL 7-18 Serum or plasma creatinine measurement (mass/volume) 1.53 mg/dL 0.60-1.30 Serum or plasma urea nitrogen/creatinine mass ratio 12 NRG Serum or plasma creatinine measurement w ith calculation of estimated glomerular filtration rate 51 NRG Serum or plasma glucose measurement (mass/volume) 180 mg/dL 70-105 Serum or plasma calcium measurement (mass/volume) 9.1 mg/dL 8.5-10.1 Serum or plasma total bilirubin measurement (mass/volu me) 0.3 mg/dL 0.1-1.0 Serum or plasma alkaline phosphatase delvin surement (enzymatic activity/volume) 53 U/L 40-136 Serum or plasma aspartate aminotransfera se measurement (enzymatic activity/volume) 24 U/L 5-34 Serum or plasma alanine aminotransferase measurement (enzymatic activity/volume) 15 U/L 0-55 Serum or plasma protein measurement (mass/volume) 7.3 g/dL 6.4-8.2 Serum or plasma albumin measurement (mass/volume) 4.1 g/dL 3.2-4.5 CALCIUM CORRECTED 9.0 mg/dL 8.5-10.1 TROPONIN I FS - 03/21/19 19:00 TROPONIN I FS < 0.30 <0.30 PROBNP FS - 03/21/19 19:00 PROBNP FS 11.6 pg/mL <75.0 Serum or plasma ethanol measurement (mas s/volume) - 03/21/19 19:00 Serum or plasma ethanol measurement (mass/volume) < mg/dL <10 Complete blood count (CBC) with automate d white blood cell (WBC) differential - 03/21/19 19:00 Blood leukocytes automated count (number/volume) 12.8 10*3/uL 4.3-11.0 Blood erythrocytes automated count (number/volume) 5.57 10*6/uL 4.35-5.85 Venous blood hemoglobin measurement (mass/volume) 17.3 g/dL 13.3-17.7 Blood hematocrit (volume fraction) 52 % 40-54 Automated erythrocyte mean corpuscular volume 93 [ foz_us] 80-99 Automated erythrocyte mean corpuscular h emoglobin (mass per erythrocyte) 31 pg 25-34 Automated erythrocyte mean corpuscular h emoglobin concentration measurement (mass/volume) 33 g/dL 32-36 Automated erythrocyte distribution width ratio 12. 8 % 10.0- 14.5 Automated blood platelet count (count/volume) 347 10*3/uL 130-400 Automated blood platelet mean volume measurement 10.1 [foz_us] 7.4-10.4 Automated blood neutrophils/100 leukocytes 57 % 42-75 Automated blood lymphocytes/100 leukocytes 34 % 12-44 Blood monocytes/100 leukocytes 6 % 0-12 Automated blood eosinophils/100 leukocytes 2 % 0-10 Automated blood basophils/100 leukocytes 0 % 0-10 Blood neutrophils automated count (number/volume) 7.3 10*3 1.8-7.8 Blood lymphocytes automated count (number/volume) 4.4 10*3 1.0-4.0 Blood monocytes automated count (number/volume) 0. 8 10*3 0.0-1.0 Automated eosinophil count 0.2 10*3/uL 0 .0-0.3 Automated blood basophil count (count/volume) 0.0 10*3/uL 0.0-0.1 Complete urinalysis with reflex to cultu re - 03/21/19 21:50 Urine color determination YELLOW NRG Urine clarity determination CLEAR NR G Urine pH measurement by test strip 6.5 5-9 Specific gravity of urine by test strip 1.025 1.016-1.022 Urine protein assay by test strip, semi-quantitative TRACE NEGATIVE Urine glucose detection by automated test strip NE GATIVE NEGATIVE Erythrocytes detection in urine sediment by light micr oscopy NEGATIVE NEGATIVE Urine ketones detection by automated test strip NE GATIVE NEGATIVE Urine nitrite detection by test strip NEGATIVE NEGATIVE Urine total bilirubin detection by test strip NEGA TIVE NEGATIVE Urine urobilinogen measurement by automated test strip (mass/volume) 0.2 mg/dL < = 1.0 Urine leukocyte esterase detection by dipstick NEG ATIVE NEGATIVE Automated urine sediment erythrocyte cou nt by microscopy (number/high power field) NONE NRG Automated urine sediment leukocyte count by microscopy (number/high power field) [HPF] NRG Bacteria detection in urine sediment by light microsco py NEGATIVE NRG Squamous epithelial cells detection in u rine sediment by light microscopy NONE NRG Crystals detection in urine sediment by light microsco py NONE NRG Casts detection in urine sediment by light microscopy PRESENT NRG Mucus detection in urine sediment by light microscopy SMALL NRG Complete urinalysis with reflex to culture NO NRG Hyaline casts detection in urine sediment by light mathew roscopy 2-5 NRG Urine drug screening test - 03/21/19 21: 50 Urine phencyclidine detection by screening method NEGATIVE NEGATIVE Urine benzodiazepines detection by screening method NEGATIVE NEGATIVE Urine cocaine detection NEGATIVE NEGATI VE Urine amphetamines detection by screening method P OSITIVE NEGATIVE Urine methamphetamine detection by screening method POSITIVE NEGATIVE Urine cannabinoids detection by screening method N EGATIVE NEGATIVE Urine opiates detection by screening method POSITI VE NEGATIVE Urine barbiturates detection NEGATIVE N EGATIVE Screening urine tricyclic antidepressants detection NEGATIVE NEGATIVE Urine methadone detection by screening method NEGA TIVE NEGATIVE Urine oxycodone detection NEGATIVE NEGA TIVE Urine propoxyphene detection NEGATIVE N EGATIVE Complete urinalysis with reflex to cultu re - 09/20/19 18:36 Urine color determination YELLOW NRG Urine clarity determination CLEAR NR G Urine pH measurement by test strip 6.5 5-9 Specific gravity of urine by test strip 1.025 1.016-1.022 Urine protein assay by test strip, semi-quantitative NEGATIVE NEGATIVE Urine glucose detection by automated test strip NE GATIVE NEGATIVE Erythrocytes detection in urine sediment by light micr oscopy NEGATIVE NEGATIVE Urine ketones detection by automated test strip NE GATIVE NEGATIVE Urine nitrite detection by test strip NEGATIVE NEGATIVE Urine total bilirubin detection by test strip NEGA TIVE NEGATIVE Urine urobilinogen measurement by automated test strip (mass/volume) 0.2 mg/dL < = 1.0 Urine leukocyte esterase detection by dipstick NEG ATIVE NEGATIVE Automated urine sediment erythrocyte cou nt by microscopy (number/high power field) NONE NRG Automated urine sediment leukocyte count by microscopy (number/high power field) NONE NRG Bacteria detection in urine sediment by light microsco py TRACE NRG Squamous epithelial cells detection in u rine sediment by light microscopy 2-5 NRG Crystals detection in urine sediment by light microsco py PRESENT NRG Casts detection in urine sediment by light microscopy PRESENT NRG Mucus detection in urine sediment by light microscopy LARGE NRG Complete urinalysis with reflex to culture NO NRG Amorphous sediment detection in urine sediment by ligh t microscopy FEW WAYLON URATES NRG Hyaline casts detection in urine sediment by light mathew roscopy 0-2 NRG Other elements identification in urine sediment by lig ht microscopy SODIUM URATE CRYSTAL NRG Complete blood count (CBC) with automate d white blood cell (WBC) differential - 09/20/19 18:44 Blood leukocytes automated count (number/volume) 7.1 10*3/uL 4.3-11.0 Blood erythrocytes automated count (number/volume) 4.82 10*6/uL 4.35-5.85 Venous blood hemoglobin measurement (mass/volume) 14.9 g/dL 13.3-17.7 Blood hematocrit (volume fraction) 44 % 40-54 Automated erythrocyte mean corpuscular volume 91 [ foz_us] 80-99 Automated erythrocyte mean corpuscular h emoglobin (mass per erythrocyte) 31 pg 25-34 Automated erythrocyte mean corpuscular h emoglobin concentration measurement (mass/volume) 34 g/dL 32-36 Automated erythrocyte distribution width ratio 12. 8 % 10.0- 14.5 Automated blood platelet count (count/volume) 235 10*3/uL 130-400 Automated blood platelet mean volume measurement 10.5 [foz_us] 7.4-10.4 Automated blood neutrophils/100 leukocytes 57 % 42-75 Automated blood lymphocytes/100 leukocytes 31 % 12-44 Blood monocytes/100 leukocytes 8 % 0-12 Automated blood eosinophils/100 leukocytes 3 % 0-10 Automated blood basophils/100 leukocytes 0 % 0-10 Blood neutrophils automated count (number/volume) 4.1 10*3 1.8-7.8 Blood lymphocytes automated count (number/volume) 2.2 10*3 1.0-4.0 Blood monocytes automated count (number/volume) 0. 5 10*3 0.0-1.0 Automated eosinophil count 0.2 10*3/uL 0 .0-0.3 Automated blood basophil count (count/volume) 0.0 10*3/uL 0.0-0.1 Comprehensive metabolic panel - 09/20/19 18:44 Serum or plasma sodium measurement (moles/volume) 138 mmol/L 135-145 Serum or plasma potassium measurement (moles/volume) 3.8 mmol/L 3.6-5.0 Serum or plasma chloride measurement (moles/volume) 102 mmol/L 98-107 Carbon dioxide 26 mmol/L 21-32 Serum or plasma anion gap determination (moles/volume) 10 mmol/L 5-14 Serum or plasma urea nitrogen measurement (mass/volume ) 12 mg/dL 7-18 Serum or plasma creatinine measurement (mass/volume) 0.99 mg/dL 0.60-1.30 Serum or plasma urea nitrogen/creatinine mass ratio 12 NRG Serum or plasma creatinine measurement w ith calculation of estimated glomerular filtration rate > NRG Serum or plasma glucose measurement (mass/volume) 96 mg/dL 70-105 Serum or plasma calcium measurement (mass/volume) 9.0 mg/dL 8.5-10.1 Serum or plasma total bilirubin measurement (mass/volu me) 0.4 mg/dL 0.1-1.0 Serum or plasma alkaline phosphatase delvin surement (enzymatic activity/volume) 45 U/L 40-136 Serum or plasma aspartate aminotransfera se measurement (enzymatic activity/volume) 17 U/L 5-34 Serum or plasma alanine aminotransferase measurement (enzymatic activity/volume) 18 U/L 0-55 Serum or plasma protein measurement (mass/volume) 6.9 g/dL 6.4-8.2 Serum or plasma albumin measurement (mass/volume) 4.1 g/dL 3.2-4.5 CALCIUM CORRECTED 8.9 mg/dL 8.5-10.1 Lipase - 09/20/19 18:44 Lipase 42 U/L 8-78 CRP FS - 09/20/19 18:44 CRP FS 0.04 mg/dL <0.50 Encounters ACCT No. Visit Date/Time Discharge Status Pt. Type Provider Facility Loc./Unit Complaint [id number] 03/21/2019 18:55:00 020 22:35:00 DIS Outpatient CHASIDY JOHN, ILEANA Carlin [facility] ER FS HIVES [id number] 03/20/2019 19:02:00 020 19:36:00 DIS Emergency KOLTON JOHN, SUSANA Henry [facility] ER FS EYE INFLAMMATION [id number] 09/20/2019 18:46:00 Document Registration
== END 2019-09-20 20:56 | disposition home or self-care (01) ==
LOC: EDUNIT# 18:19 → ER FS 18:21
DX: K42.9 Umbilical hernia without obstruction or gangrene (principal); K59.00 Constipation, unspecified; F17.210 Nicotine dependence, cigarettes, uncomplicated; Z90.49 Acquired absence of other specified parts of digestive tract
CPT/HCPCS: 36415; 74177; 80053; 81000; 83690; 85025; 86141

== ENCOUNTER 2020-11-22 09:43 | Emergency (ER) | payer SELFPAY ==
[~2020-11-22] VITALS: Ht 180.3 cm; Wt 95.0 kg
[~2020-11-22 09:43] MED LIST: IBUP-1780 PO; POLY119P5 PO
--- OUTSIDE RECORDS SUMMARY | 2020-11-22 09:49 | XMS REPORT | Clinical Summary ---
Author Author [facility] Organization [facility] Address Unknown Phone Unavailable Care Team Providers Care Broke Man Name Role Phone PCP Unavailable Allergies Not on File Medications Not on file Active Problems Not on file Social History Date Tobacco Use Types Packs/Day Years Used Never Assessed Sex Assigned at Date Recorded Not on file Last Filed Vital Signs Not on file Plan of Treatment Not on file Results Not on filefrom Last 3 Months
[2020-11-22] MEDS ORDERED: cefTRIAXone 1,000 MG VIAL IM STA (09:55)
[2020-11-22] MEDS ORDERED: LIDOCAINE 1% INJ 20 ML 20 ML VIAL INJ STA (09:55)
--- NOTE | 2020-11-22 09:58 | ED Integumentary General ---
General Chief Complaint: Bite-Animal/Human/Insect Stated Complaint: LT ARM INSECT BITE Source: patient History of Present Illness Date Seen by Provider: Nov 22, 2020 Time Seen by Provider: 09:46 Initial Comments 40-year-old male presenting with pain and swelling to the left forearm near his elbow. He has been working cleaning the house and moving it was concerned that he may have been bit by a brown recluse spider. He has had 3 days of increasing swelling, redness and pain to the left forearm and elbow. He initially said the area started out as something that looked like an ingrown hair and he tried to s queeze that to pop it. He has had increasing pain since then. He denies any fever or chills. He has not taken any medicine for it and does not have any primary care provider to follow-up with. He has pain extending into the elbow area as well as down the forearm. He has been trying to apply Prid to draw out the infection and heat but not had any significant drainage from the wound. He denies history of MRSA or recurrent boils. Severity: moderate Location: extremities (left forearm/elbow area) Possible Cause: no cause identified Associated Symptoms: No fever, No flushing, No headache, No hives, No jaundice, No malaise, No nasal congestion, No numbness, No pallor, No paresthesia, No petechiae, No rash, No sore throat; swelling/mass/lumps (mild swelling to left forearm near elbow that is tender to palpation and movement) Allergies and Home Medications Allergies Coded Allergies: No Known Drug Allergies (Unverified , 03/20/19) Patient Home Medication List Home Medication List Reviewed: Yes Sulfamethoxazole/Trimethoprim (Bactrim Ds Tablet) 1 Each Tablet, 1 EACH PO BID Prescribed by: ZAINAB AYERS on 11/22/20 1025 Discontinued Medications Ibuprofen (Ibuprofen) 800 Mg Tablet, 800 MG PO Q8H PRN for PAIN-MILD Prescribed by: ILEANA UMAÑA on 09/20/192048 Polyethylene Glycol 3350 (Miralax) 119 Gm Powder, 17 GM PO BID PRN PRN for CONSTIPATION-1ST LINE Prescribed by: ILEANA UMAÑA on 09/20/192040 Review of Systems Review of Systems Constitutional: No chills, No fever EENTM: no symptoms reported Respiratory: no symptoms reported Cardiovascular: no symptoms reported Gastrointestinal: no symptoms reported Genitourinary: no symptoms reported Musculoskeletal: see HPI Skin: see HPI Psychiatric/Neurological: See HPI Past Sxylmos-Wlbmpq-Jsjkrg Hx Seasonal Allergies Seasonal Allergies: No Past Medical History Surgeries: Yes (Right Eye Surgery) Appendectomy, Orthopedic Respiratory: No Cardiac: No Neurological: No Genitourinary: No Gastrointestinal: No Musculoskeletal: No Endocrine: No HEENT: No Cancer: No Psychosocial: No Integumentary: No Physical Exam Vital Signs Vital Signs - First Documented 11/22/20 09:52 Temp 36.4 Pulse 100 Resp 18 B/P (MAP) 124/102 (109) Pulse Ox 98 O2 Delivery Room Air Capillary Refill : General Appearance: WD/WN, no apparent distress Cardiovascular: normal peripheral pulses Extremities: normal range of motion, normal capillary refill, inflammation (and tenderness with mild swelling to left forearm near elbow) Neurologic/Psychiatric: water proofer II-XII nml as tested, no motor/sensory deficits, alert, oriented x 3 Skin: warm/dry Skin Problem Location: upper extremities (left forearm near elbow) Skin Problem Character: abscess, erythema, swelling, tenderness, warm, other (no fluctuance or drainage) Procedures/Interventions I&D : Site: left forearm near elbow Blade Size: 11 I & D Procedure: sterile dressing applied Progress After obtaining verbal consent from the patient the area on his left forearm near the elbow was cleaned with alcohol pads. Then using 1% plain lidocaine a wheal was raised to help numb the area. Then using an 11 blade scalpel a small incision was made with a minimal amount of clear to milky colored drainage along with some blood. The wound culture was sent to the lab. Counseled on management of the area. Encouraged to keep it covered if it might get dirty and if it straining as well as continue to apply heat to help heal. Take a course of antibiotics to help with infection and cellulitis. Follow-up with clinic or return if not improving after 3 to 4 days. And wound explored initiated with a gram of Rocephin IM here in the ED and discharged with Bactrim DS to be taken twice a day Progress/Results/Core Measures Results/Orders My Orders Orders - ZAINAB AYERS MD Lidocaine 1% Inj 20 Ml (Xylocaine 1% Inj (11/22/20 09:55) Wound Culture (11/22/20 09:55) Ceftriaxone (Rocephin) (11/22/20 09:55) Vital Signs/I&O 11/22/20 11/22/20 09:52 10:26 Temp 36.4 36.4 Pulse 100 100 Resp 18 18 B/P (MAP) 124/102 (109) 124/102 Pulse Ox 98 98 O2 Delivery Room Air Room Air Progress Progress Note : Progress Note After obtaining verbal consent from the patient the area was attempted to have I&D performed on it. There is a very minimal amount of drainage from it after the procedure. The drainage was sent for culture. Patient was given 1 g Rocephin IM to initiate with antibiotic coverage. Discharged on Bactrim DS p.o. twice daily x10 days. Advised to take NSAIDs by mouth to help with pain and inflammation. Continue to apply heat to help with getting the area to heal and drain if it was going to drain Departure Impression Primary Impression: Cellulitis and abscess of upper extremity Additional Impression: Pain and swelling of left forearm Disposition: 01 HOME, SELF-CARE Condition: Stable Departure-Patient Inst. Decision time for Depature: 10:20 Referrals: NO,LOCAL PHYSICIAN (PCP) Primary Care Physician [facility] [place] Instructions: Boil, Adult ED, Cellulitis (Skin Infection), Adult ED, Abscess Incision and Drainage ED Add. Discharge Instructions: Take oral antibiotics until all gone to make sure the infection in your forearm and elbow area is completely treated. Keep covered if you might get it dirty and while the area is draining or bleeding. Use heat 15-20 minutes every few hours to help increase the blood flow and get more antibiotics to the area and if it is going to come to a head and form a pus pocket it can drain. Use NSAID such as Advil, Motrin (generic is Ibuprofen), or Aleve (generic is Naproxen) to help with pain and inflammation. If you are not seeing improvement after 3 days of antibiotics then get reche cked, but be aware it will likely get a little worse in the next 24 hours before the antibiotics have a chance to start working. However, the shot you got of Rocephin was an antibiotic to help speed up the treatment for the infection. All discharge instructions reviewed with patient and/or family. Voiced understanding. Scripts Sulfamethoxazole/Trimethoprim (Bactrim Ds Tablet) 1 Each Tablet 1 EACH PO BID for cellulitis/abscess for 10 Days, #20 TAB 0 Refills Prov: ZAINAB AYERS MD 11/22/20 ZAINAB AYERS MD Nov 22, 2020 09:58
[2020-11-22] MEDS ORDERED: SULF1TAB38 PO (10:25)
[2020-11-22 10:26] VITALS: BP 124/102
== END 2020-11-22 10:26 | disposition home or self-care (01) ==
LOC: EDUNIT# 09:43 → ER FS 09:46
DX: L03.114 Cellulitis of left upper limb (principal); L02.414 Cutaneous abscess of left upper limb; M79.89 Other specified soft tissue disorders
CPT/HCPCS: 87070; 87077; 87186; 87205; 99284

== ENCOUNTER 2022-07-22 06:36 | Outpatient (CLI) | payer OTHER ==
[~2022-07-22] VITALS: Ht 180.3 cm; Wt 100.0 kg
[~2022-07-22 06:36] MED LIST changes: +SULF1TAB38 PO
[2022-07-29] MEDS ORDERED: ACHD5005 PO (10:51)
[2022-07-29] MEDS ORDERED: DOCU-143 PO (10:51)
== END 2022-07-27 09:00 | disposition home or self-care (01) ==
LOC: PREOP 06:36
PROVIDERS: ATTEND Surgery
DX: Z01.818 Encounter for other preprocedural examination (principal)

== ENCOUNTER 2022-07-29 06:59 | Day surgery (SDC) | payer OTHER ==
[2022-07-29] VITALS (11 sets, daily range): BP systolic 113–137; BP diastolic 71–94
[~2022-07-29] VITALS: Ht 180 cm; Wt 100.0 kg
[2022-07-29] MEDS ORDERED: ceFAZolin INJECTION 2,000 MG in NS (IVPB) 50 ML IV ONE (07:15)
[2022-07-29] MEDS ORDERED: BUP/EPI 0.5% 1:200,000 (SENSORCAINE) 30 ML VIAL ONE (07:25)
[2022-07-29] MEDS ORDERED: ROCURONIUM 50 MG/5 ML (ZEMURON) VIAL IV ONE (07:38)
[2022-07-29] MEDS ORDERED: fentaNYL INJ 100 MCG/2 ML AMP ONE (07:38)
[2022-07-29] MEDS ORDERED: ONDANSETRON 4 MG/2 ML (SDV) Z0FRAN ONE (07:38)
[2022-07-29] MEDS ORDERED: MIDAZOLAM 2 MG/2 ML (VERSED) VIAL ONE (07:38)
[2022-07-29] MEDS ORDERED: LIDOCAINE PF 2% 5 ML (XYLOCAINE) VIAL ONE (07:38)
[2022-07-29] MEDS ORDERED: proPOfol 200 MG/20 ML (DIPRIVAN) VIAL IV ONE ×2 (07:38→10:21)
[2022-07-29] MEDS: LACTATED RINGERS 1,000 ML IV PRN ×2 (07:44→09:16)
[2022-07-29] MEDS ORDERED: CATHETER FLUSH 10 ML SYR IVP PRN (07:45)
--- NOTE | 2022-07-29 07:53 | Progress Note-Pre Operative ---
Pre-Operative Progress Note Date H&P Reviewed: July 29, 2022 Time H&P Reviewed: 07:43 History & Physical: H&P Reviewed, Patient Examed, No changes noted Pre-Operative Diagnosis: left inguinal hernia, incisional hernia NIGEL ALEGRE DO July 29, 2022 07:53
[2022-07-29] MEDS ORDERED: SEVOFLURANE (ULTANE) 15 ML INHAL SOLN ONE (10:42)
[2022-07-29] MEDS ORDERED: DOCU-143 PO (10:51)
[2022-07-29] MEDS ORDERED: ACHD5005 PO (10:51)
--- NOTE | 2022-07-29 10:52 | Discharge Inst-Simple/Standard ---
Discharge Inst-Standard Discharge Medications New, Converted or Re-Newed RX: Transmitted to Pharmacy Patient Instructions/Follow Up Plan of Care/Instructions/FU: 2 weeks Sasha Activity as Tolerated: No Discharge Diet: Regular Diet Other Inst to Patient Follow up Appt: Make appointment for 2 week. Instructions: No lifting greater than 10 pounds. No strenuous activity. May shower in 24 hours, no tub bath or soaking. Use incentive spirometer at home as directed. No Smoking Skin/Wound Care: You have special glue over your incision that will fall off on it's own. Symptoms to Report: Appetite Changes, Extremity Discoloration, Numbness/Tingling, Swelling Increased, Bleeding Excessive, Eyesight Changes, Pain Increased, Urine Color Change, Constipation(Persistent), Fever over 101 degree F, Pain/Pressure in chest, Urinating Difficulty, Cough Up/Vomit Blood, Heart Beat Irreg/Pounding, Pain/Pressure in jaw, Vaginal Bleeding Increase, Cramps in feet or legs, Lightheadedness, Pain/Pressure in shoulder, Diarrhea(Persistent), Memory Changes Suddenly, Questions/Concerns, Weight gain consecutive days, Dizziness/Fainting, Nausea/Vomiting, Shortness of Breath, Weight gain over 2 pounds If questions or concerns contact your physician Or seek help at emergency department. NIGEL ALEGRE DO July 29, 2022 10:52
--- NOTE | 2022-07-29 10:54 | Progress Note-Post Operative ---
Post-Operative Progess Note Surgeon (s)/Nascar Driver (s) Surgeon NIGEL ALEGRE DO Nascar Driver: Dr. Summers Pre-Operative Diagnosis left inguinal hernia, incisional hernia Post-Operative Diagnosis left inguinal hernia, cord lipoma, incarcerated incisional hernia Procedure & Operative Findings Date of Procedure 07/29/22 Procedure Performed/Findings robotic left inguinal hernia repair and excision cord lipoma, incarcerated incisional hernia repair Anesthesia Type general Estimated Blood Loss Estimated blood loss (mL): minimal Specimens/Packing Specimens Removed cord lipoma, hernia contents NIGEL ALEGRE DO July 29, 2022 10:54
[2022-07-29] MEDS ORDERED: MEPERIDINE (DEMEROL) INJ 50 MG/ML IVP ONE (11:00)
[2022-07-29] MEDS ORDERED: morphine INJ 10 MG/ML 1ML (SYR OR VIAL) IVP ONE (11:00)
[2022-07-29] MEDS ORDERED: HYDROmorphone 2 MG/ML VIAL (DILAUDID) IV ONE (11:00)
[2022-07-29] MEDS ORDERED: PROMETHAZINE INJ 25 MG/ML (PHENERGAN) AMP IVP ONE (11:00)
[2022-07-29] MEDS ORDERED: ONDANSETRON 4 MG/2 ML (SDV) Z0FRAN IVP PRN (11:00)
[2022-07-29] MEDS ORDERED: morphine INJ 10 MG/ML 1ML (SYR OR VIAL) ONE (11:03)
[2022-07-29] MEDS ORDERED: HYDROcodone/APAP 5 MG/325 MG (LORTAB) TAB ONE (11:44)
[2022-07-29] MEDS ORDERED: HYDROcodone/APAP 5 MG/325 MG (LORTAB) TAB PO ONE ×2 (11:45→12:30)
--- NOTE | 2022-07-29 12:23 | Anesthesia-General Post-Op ---
General Patient Condition Mental Status/LOC: Same as Preop Cardiovascular: Satisfactory Nausea/Vomiting: Absent Respiratory: Satisfactory Pain: Controlled Complications: Absent Post Op Complications Complications None Follow Up Care/Instructions Patient Instructions None needed. Anesthesia/Patient Condition Patient Condition Patient is doing well, no complaints, stable vital signs, no apparent adverse anesthesia problems. No complications reported per nursing. WAYLON ANN CRNA July 29, 2022 12:23
--- NOTE | 2022-08-01 12:50 | OPERATIVE REPORT ---
DATE OF SERVICE: 07/29/2022 PREOPERATIVE DIAGNOSES: Left inguinal hernia and incisional hernia. POSTOPERATIVE DIAGNOSES: Left indirect inguinal hernia, cord lipoma, incarcerated incisional hernia. PROCEDURES: Robotic left inguinal hernia repair with excision of cord lipoma, incarcerated incisional hernia repair, laparoscopically less than 3 cm. SURGEON: Nigel Baez DO FOOD CASHIER: Keshav Summers DO; assisted in retraction, dissection, and closure. ANESTHESIA: General. ESTIMATED BLOOD LOSS: Minimal. COMPLICATIONS: None. INDICATIONS: The patient is a 42-year-old male with a left inguinal hernia and incisional hernia, which he understands risks and benefits of procedure and wishes to proceed. Consent was signed in chart. DESCRIPTION OF PROCEDURE: The patient was taken to the operating suite, where he was prepped and draped in sterile fashion and timeout was performed. A local anesthetic was infiltrated just above the umbilicus at the hernia site. A 11 blade scalpel was used to make a skin incision. The subcutaneous tissues were then dissected down and encountered incarcerated fat. This was dissected around and the abdomen was then entered. A mei trocar was inserted and pneumoperitoneum was achieved. Under direct visualization of the laparoscope, two 8 mm trocars were placed, one on the right side of the abdomen and one on the left side. The patient had a large left indirect inguinal hernia present. The patient was positioned. The robot was then docked. The peritoneum was then taken down and dissected down to Pawel's ligament and then dissected laterally, taking down the hernia sac. A cord lipoma was present, which was excised. The pocket was then continued to be dissected laterally for mesh placement. A large 3DMax mesh was then placed within the abdomen and secured to Pawel's ligament with 3-0 [ ] suture. Also, on the lateral superior portion of the mesh, another 3-0 Vicryl suture was placed to hold it in place. The peritoneum was taken down 2 cm below the ligament for adequate mesh placement. At this point, a V-Loc suture was then used to close the peritoneum and the robot was then undocked. The cord lipoma was removed from the abdomen. A 5 mm trocar was then placed in the right lower quadrant. Using the LigaSure, the falciform ligament was then taken down and also the fat pad inferiorly taken down, so a mesh could be placed. The hernia contents were dissected out of the defect. A 4.5-inch Echo Ventralight mesh was inserted in the abdomen and was placed through the incision. A 0 Vicryl was used to close the fascia in a [id number] fashion. The balloon was then insufflated and SecureStrap tacker was then used to circumferentially tack the mesh in place. The balloon was removed and an inner crown was placed as well. The abdomen was then desufflated and the trocars were removed. Skin was then closed using 4-0 Monocryl in a subcuticular fashion. Skin Affix was placed over the incisions. The patient tolerated the procedure well without any complications, taken to recovery room in stable condition. Job ID: [id number] DocumentID: [id number] Dictated Date: 08/01/2022 09:48:16 Instructional Materials Director Date: 08/01/2022 12:48:00 Dictated By: NIGEL BAEZ DO
== END 2022-07-29 13:25 | disposition home or self-care (01) ==
LOC: SDC 06:59
PROVIDERS: ATTEND Surgery
DX: K43.0 Incisional hernia with obstruction, without gangrene (principal); K40.90 Unilateral inguinal hernia, without obstruction or gangrene, not specified as recurrent; D17.6 Benign lipomatous neoplasm of spermatic cord; F17.210 Nicotine dependence, cigarettes, uncomplicated; Z28.310 Unvaccinated for COVID-19
CPT/HCPCS: 49592; 49650; 87081; 94664; C1781 ×2; 88302; 88304